=== PATIENT | male | born 1975 | race Caucasian/White ===

== ENCOUNTER 2017-10-08 11:16 | Outpatient (CLI) | payer OTHER ==
--- NOTE | 2017-10-08 11:38 | Diagnostic Imaging Report ---
WOOD [facility]ENG [facility] [id number] [facility] [address] [address] Report Submission Date: Oct 08, 2017 11:36:07 AM [employer] REPRESENTATIVE Patient Study Name: REID COUCH Date: Oct 08, 2017 11:19:37 AM [employer] REPRESENTATIVE Modality Type: CR Gender: M Description: CHEST : 79 Institution: [facility] Physician: WODO FENG Examination: PA and lateral chest. History: CXR, COUGH/ CHEST PAIN X1 WEEK (Hx) / COUGH AND CHEST PAIN X 1 WEEK ( DICOM Hx) / COUGH AND CHEST PAIN X 1 WEEK (Pt comments) Comparison exam: None provided. Findings: PA lateral chest demonstrate a normal cardiac and mediastinal silhouette. No focal infiltrate. No blunting of the costophrenic margins. Osseous structures are appropriate for age. Impression: No acute pulmonary process. Electronically signed on Oct 08, 2017 11:36:07 AM [employer] REPRESENTATIVE by: Brian SILVA
== END 2017-10-08 11:17 ==
LOC: RAD 11:16
PROVIDERS: ATTEND Family Medicine
DX: R05 Cough (principal); R07.9 Chest pain, unspecified
CPT/HCPCS: 71046